=== PATIENT | male | born 1980 | race Two or more races ===

== ENCOUNTER 2017-04-18 00:28 | Emergency (ER) | payer OTHER ==
[~2017-04-18] VITALS: Ht 172.7 cm; Wt 74.8 kg
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
--- NOTE | 2017-04-18 00:45 | NUR ---
patient refused wound care. notified
--- NOTE | 2017-04-18 01:22 | NUR ---
patient is refusing CT scan of head. MD Ortiz notified
[2017-04-18] MEDS ORDERED: LORAZEPAM INJ 2 MG/ML VIAL ONE (01:49)
[2017-04-18] MEDS ORDERED: HALOPERIDOL LACTATE INJ 5 MG/ML VIAL IM ONE (02:00)
[2017-04-18] MEDS ORDERED: LORAZEPAM INJ 2 MG/ML VIAL IM ONE (02:00)
[2017-04-18 03:46] VITALS: BP 113/69
--- NOTE | 2017-04-18 03:47 | NUR ---
Patient discharged to [employer] custody for transport to detention in stable condition. Written and verbal after care instructions given. Patient verbalizes understanding of instruction. Pt ambulatory with a steady gait. VSS, NAD noted on DC.
== END 2017-04-18 04:00 ==
LOC: ER 00:31
DX: S01.01XA Laceration without foreign body of scalp, initial encounter (principal); S01.81XA Laceration without foreign body of other part of head, initial encounter; W06.XXXA Fall from bed, initial encounter; W01.198A Fall on same level from slipping, tripping and stumbling with subsequent striking against other object, initial encounter; Y93.89 Activity, other specified; Y92.89 Other specified places as the place of occurrence of the external cause; Y99.8 Other external cause status
CPT/HCPCS: 12011; 70450; 96372; 99284; A4606; J2060; Z7610